=== PATIENT | female | born 1940 | race Asian ===

== ENCOUNTER → 2017-07-15 | Outpatient (CLI) | payer OTHER | LOC: BRMIMAGING 10:09 | PROVIDERS: ATTEND Family Medicine | DX: Z12.31 Encounter for screening mammogram for malignant neoplasm of breast (principal) | CPT/HCPCS: G0202 ==

== ENCOUNTER → 2017-07-23 | Outpatient (CLI) | payer OTHER | LOC: BRMIMAGING 09:04 | PROVIDERS: ATTEND Family Medicine | DX: N60.12 Diffuse cystic mastopathy of left breast (principal) | CPT/HCPCS: 76641; G0206 ==